=== PATIENT | female | born 1970 | race Caucasian/White ===

== ENCOUNTER → 2017-09-05 | Outpatient (CLI) | payer OTHER ==
[2016-09-06 23:28] VITALS: BP 152/89
--- NOTE | 2017-09-06 08:13 | MRI ---
HISTORY: Cervical spondylosis Study: Magnetic resonance imaging of the cervical spine: Multiplanar multisequence magnetic resonanc e of the cervical spine was performed on a closed magnet. Comparison: None Findings: The paraspinal soft tissues demonstrate no evidence of cervical adenopathy. The thyroid as visualized is normal. No evidence of supraclavicular adenopathy is identified. The sagittal images demonstrate normal curvature and alignment. [id number] disc desiccation is noted throughout. Mild space narrowing is noted at T3/T4. The marrow signal intensity is homogeneous. I see no evidence marrow edema that would suggest a fracture. Posterior fossa as visualized is jacquie l . The cervical spinal cord is of normal signal. Skullbase/C1: No significant abnormalities. C1/C2: Minimal degenerative change in the pre odontoid space. Mild thickening of the transverse ligam ent. No significant spinal stenosis. C2/C3: No significant abnormalities. C3/C4: No significant abnormalities. C4/C5: Minimal disc spur complex formation. No other significant abnormalities. C5/C6: Large disc spur complex extending predominantly to the right. Moderate impingement and mild co mpression of the spinal cord, predominantly on the right. Mild facet arthropathy and uncovertebral brandon int arthropathy bilaterally, left greater than right. Moderate moderately severe foraminal stenosis o n the left. Mild on the right. C6/C7: Mild facet arthropathy. Minimal uncovertebral joint arthropathy. Minimal foraminal stenosis bi laterally. C7/T1: No significant abnormalities. T1/T2: Sagittal images only. No significant abnormalities. T2/T3: Sagittal images only. No significant abnormalities. T3/T4: Sagittal images only. There is a tiny central disc protrusion versus bulging. This appears to abut the spinal cord but not compresses. No other significant abnormalities. T4/T5: Sagittal images only. No significant abnormalities. IMPRESSION: 1. Cervical spondylosis as described above, predominating at C5/C6 where there is compression of the spinal cord. 2. Please see detailed report above. Reported By:
== END ==
LOC: RAD 13:37
PROVIDERS: ATTEND Psychiatry & Neurology Neurology
DX: M47.812 Spondylosis without myelopathy or radiculopathy, cervical region (principal)
CPT/HCPCS: 72141

== ENCOUNTER → 2017-09-06 | Outpatient (CLI) | payer OTHER ==
[2016-09-06 23:28] VITALS: BP 152/89
== END ==
LOC: RT 09:03
PROVIDERS: ATTEND Psychiatry & Neurology Neurology
DX: G56.03 Carpal tunnel syndrome, bilateral upper limbs (principal)
CPT/HCPCS: 95911

== ENCOUNTER → 2017-10-10 | Outpatient (CLI) | payer OTHER ==
[2016-09-06 23:28] VITALS: BP 152/89
[2017-10-10 06:25] LABS: BASOPHILS % (AUTO) 0.7 % (0.2-1.0); EOSINOPHILS # (AUTO) 0.1 x10^3/uL (0.0-0.2); EOSINOPHILS % (AUTO) 1.8 % (0.9-2.9); HEMATOCRIT 37.4 % (36.0-47.0); HEMOGLOBIN 12.8 g/dL (12.0-16.0); LYMPHOCYTES # (AUTO) 2.4 X10^3/uL (1.3-2.9); LYMPHOCYTES % (AUTO) 34.4 % (21.0-51.0); MEAN CORPUSCULAR HEMOGLOBIN 28.9 pg (27.0-34.0); MEAN CORPUSCULAR HGB CONC 34.2 g/dL (33.0-35.0); MEAN CORPUSCULAR VOLUME 84.7 fL (80.0-100.0); MEAN PLATELET VOLUME 8.9 fL (7.4-11.0); MONOCYTES # (AUTO) 0.3 x10^3/uL (0.3-0.8); MONOCYTES % (AUTO) 4.8 % (0.0-13.0); NEUTROPHILS % (AUTO) 58.3 % (42.0-75.0); PLATELET COUNT 252 X10^3/uL (150.0-450.0); RED BLOOD COUNT 4.42 X10^6/uL (3.5-5.4); RED CELL DISTRIBUTION WIDTH 13.4 % (11.6-16.5); WHITE BLOOD COUNT 6.9 X10^3/uL (3.6-10.0)
[2017-10-10 06:41] LABS: ALBUMIN 4.4 g/dL (3.4-5.0); BLOOD UREA NITROGEN 18 mg/dL (7-18); CALCIUM 9.1 mg/dL (8.5-10.1); CARBON DIOXIDE 28.2 mmol/L (21-32); CHLORIDE 105 mmol/L (98-107); CHOL/HDL RATIO 3.2 (0.0-5.0); CHOLESTEROL 186 mg/dL (0-200); CREATININE 1.21 mg/dL (0.55-1.02); HDL CHOLESTEROL 58 mg/dL (40-60); PHOSPHORUS 4.1 mg/dL (2.6-4.7); SODIUM 143 mmol/L (136-145); TRIGLYCERIDES 126 mg/dL (0-150); URIC ACID 5.6 mg/dL (2.6-6.0); eGFR BLACK RACES > 60 (>60); eGFR NON BLACK RACES 51 (>60)
== END | disposition home or self-care (01) | DRG 684 ==
LOC: LAB 06:06
PROVIDERS: ATTEND Internal Medicine
DX: I12.9 Hypertensive chronic kidney disease with stage 1 through stage 4 chronic kidney disease, or unspecified chronic kidney disease (principal); N18.3 Chronic kidney disease, stage 3 (moderate)
CPT/HCPCS: 36415; 80061; 80069; 84550; 85025

== ENCOUNTER → 2018-01-16 | Outpatient (CLI) | payer OTHER ==
[2016-09-06 23:28] VITALS: BP 152/89
--- NOTE | 2018-01-16 21:36 | RAD ---
History: Ingested foreign body, swallowed a dental device. Technique: Acute abdominal series with PA view of the chest and flat and upright views of the abdomen . Three radiographs total. Comparison:NONE Findings: Chest radiograph: Lungs are clear. No focal airspace opacities. The hilar and cardiomediastinal silho uette appear normal. No radiopaque foreign bodies are noted along the course of the esophagus. Flat and upright abdomen: Flat and upright views of the abdomen demonstrate a metallic density radiop acity projecting over the right lower quadrant of the abdomen, over the right iliac crest adjacent to the SI joint. This is consistent with patient's history of ingested dental device and may be within distal small bowel or proximal colon. Bowel gas pattern is nonspecific nonobstructive. No free air is demonstrated under the diaphragms. Impression: 1. Radiopaque foreign body projecting over the right lower quadrant of the abdomen as discussed above . This is consistent with patient's history of ingested dental device. 2. No radiographic evidence of acute cardiopulmonary process. Reported By:
== END ==
LOC: RAD 13:19
PROVIDERS: ATTEND Psychiatry & Neurology Neurology
DX: T17.298A Other foreign object in pharynx causing other injury, initial encounter (principal); X58.XXXA Exposure to other specified factors, initial encounter
CPT/HCPCS: 74022

== ENCOUNTER → 2018-01-19 | Outpatient (CLI) | payer OTHER ==
[2016-09-06 23:28] VITALS: BP 152/89
--- NOTE | 2018-01-19 17:11 | RAD ---
Examination: Abdomen series with PA chest History: Swallowed dental device Comparison 01/16/2018 Findings: Essentially normal PA chest. In the abdomen the gas pattern is normal. There is no evidence for metallic foreign body now i dentified. No free air, mass or free fluid. Impression: No abnormality demonstrated. The previously described foreign body in the right lower abd omen is no longer identified.
== END | disposition home or self-care (01) ==
LOC: RAD 16:44
PROVIDERS: ATTEND Psychiatry & Neurology Neurology
DX: T17.900S Unspecified foreign body in respiratory tract, part unspecified causing asphyxiation, sequela (principal); X58.XXXS Exposure to other specified factors, sequela
CPT/HCPCS: 74022

== ENCOUNTER 2020-12-28 09:50 | Inpatient (IN) ==
[2020-12-28 10:09] VITALS: BMI 25.7
[2020-12-28] MEDS ORDERED: NS 1000 ML 1,000 ML IV ONE (10:23)
--- NOTE | 2020-12-28 10:29 | DR.GENAD ---
HPI Time Seen Time Seen by Provider: 12/28/20 10:22 HPI Comment HPI Comment: A 50 y/o female brought into ED via EMS with information of being unresponsive. Pt. was found to be hypotensive by the response team. It was stated that her family felt she may have aspirated yesterday. 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 Complaint/Symptoms Chief Complaint:: EMS OUT TO PT UNRESPONSIVE AND LOW B/P, UPON ARRIVAL PT NOTED TO HAVE B/P WNL AND FAMILY STATES PT MAY HAVE ASPIRATED YESTERDAY . UPON ARRIVAL TO ER PT NOTED TO BE FAVORING HER RIGHT SIDE,( HX OF CVA) PT HAS ON 02 3 LPM, PT IS ON HOME 02 2 LPM, PT HAS EXP RHONCHI AND WHEEZES, PT IS PALE AND HAS HER EYES OPEN AND PT HAS PEG TUBE TO HER ABD ,,BR COVID-19 Coronavirus risk:travel/contact w/high risk person: No Has patient experienced Coronavirus symptoms: No Nurses notes reviewed Nurses Notes Review: Yes Source History Provided: Family Member and EMS Mode of Arrival Mode of Arrival: Stretcher Timing Onset of Chief Complaint: 12/28/20 PMH PMH Past Medical History: Yes Past Medical History: CHF, CVA, Hypertension and [place] Past Surgical History: Yes Surgical History: Family History History of Family Medical Conditions: Yes Family Medical History: Cancer, Coronary Artery Disease and Hypertension Social History Does patient currently use any type of tobacco product: No Have you used tobacco products in the last 12 months: No Type of Tobacco Use: None Does any household member use tobacco: No Alcohol Use: None Do you use any recreational Drugs:: No Lives With: Family Lives Where: Home Travel Risk Coronavirus risk:travel/contact w/high risk person: No Has patient experienced Coronavirus symptoms: No Infectious screening In the last 2 months have you had wt loss of >10#?: NO Have you had fever, night sweats or hemotysis?: No Have you traveled outside the country in the last 6 months?: No Isolation: Standard ROS Review of Systems Constitutional: No Symptoms Reported Eyes: No Symptoms Reported ENTM: No Symptoms Reported Respiratoy: Other (gourgling BS) Cardiovascular: No Symptoms Reported Gastrointestinal/Abdominal: No Symptoms Reported Genitourinary: No Symptoms Reported Neurological: Other (Decreased responsiveness ) Musculoskeletal: No Symptoms Reported Integumentary: No Symptoms Reported Hematologic/Lymphatic: No Symptoms Reported Endocrine: No Symptoms Reported Psychiatric: No Symptoms Reported PE Vital Signs Vitals: Temperature 97.4 F Pulse Rate 55 Respiratory Rate 12 Blood Pressure [Left Arm] 167/100 Blood Pressure 133/80 O2 Sat by Pulse Oximetry 98 General Limitations: Altered Mental Status and Physical Limitation General Appearance: In No Apparent Distress and Lethargic Head Head Exam: Normal Inspection, Atraumatic and Normocephalic Eyes Eye exam: Normal Appearance and PERRL ENT ENT Exam: Normal Exam, Normal Oropharynx, Normal External Ear Exam and Mucous Membranes Dry Neck Neck Exam: Normal Inspection, Full ROM, Trachea Midline and Other; negative Tenderness, Meningismus, Lymphadenopathy and Thyromegaly Chest Chest Inspection: Normal Inspection and Symmetric Chest Wall Rise Respiratory Respiratory Exam: Other (She's noted with periods of apnea.) Respiratory Exam: Bilateral: Rhonchi and Bilateral: Crackles Cardiovascular Cardiovascular Exam: Regular Rate, Normal Rhythm, Normal Heart Sounds, +S1 and +S2 Abdominal Exam Abdominal Exam: Normal Inspection, Normal Bowel Sounds and Soft Extremities Extremities Exam: Other (flacid and hyperextended at feet/ankles) Back Back Exam: Normal Inspection Neurologic Neurological Exam: Other (She is not alert currently) Skin Skin Exam: Dry and Normal Color COURSE Reevaluation 1st: Improved (BP values ae now better) Education/Counseling Education/Counseling: Family (I informed her tea about the diagnostic lab. findings and recommendation for hospitalization), Education and Counseling Educated On: Treatment, Diagnosis, Prognosis and Needs for Follow Up ROR Labs Reviewed Result Diagrams: 12/28/20 10:39 12/28/20 10:39 Laboratory: WBC 7.6 X10^3/uL (3.6-10.0) 12/28/20 10:39 RBC 3.69 X10^6/uL (3.5-5.4) 12/28/20 10:39 Hgb 10.7 g/dL (12.0-16.0) L 12/28/20 10:39 Hct 32.9 % (36.0-47.0) L 12/28/20 10:39 MCV 89.1 fL (80.0-100.0) 12/28/20 10:39 MCH 28.9 pg (27.0-34.0) 12/28/20 10:39 MCHC 32.4 g/dL (33.0-35.0) L 12/28/20 10:39 RDW 14.6 % (11.6-16.5) 12/28/20 10:39 Plt Count 263 X10^3/uL (150.0-450.0) 12/28/20 10:39 MPV 9.9 fL (7.4-11.0) 12/28/20 10:39 Neut % (Auto) 67.9 % (42.0-75.0) 12/28/20 10:39 Lymph % (Auto) 22.7 % (21.0-51.0) 12/28/20 10:39 [place] % (Auto) 5.8 % (0.0-13.0) 12/28/20 10:39 Eos % (Auto) 2.6 % (0.9-2.9) 12/28/20 10:39 Baso % (Auto) 1.0 % (0.2-1.0) 12/28/20 10:39 Neut # (Auto) 5.2 x10^3/uL (2.2-4.8) H 12/28/20 10:39 Lymph # (Auto) 1.7 X10^3/uL (1.3-2.9) 12/28/20 10:39 [place] # (Auto) 0.4 x10^3/uL (0.3-0.8) 12/28/20 10:39 Eos # (Auto) 0.2 x10^3/uL (0.0-0.2) 12/28/20 10:39 Baso # (Auto) 0.1 X10^3/uL (0.0-0.1) 12/28/20 10:39 Absolute Nucleated RBC 0.0 /100WBC 12/28/20 10:39 Sample Site Rbra 12/28/20 10:45 ABG pH 7.320 (7.35-7.45) L 12/28/20 10:45 ABG pCO2 51.0 mmHg (35.0-45.0) H* 12/28/20 10:45 ABG pO2 71.0 mmHg (80.0-100.0) L 12/28/20 10:45 ABG HCO3 26.3 mmol/L (22-26) H 12/28/20 10:45 ABG O2 Saturation 93.0 % (90-100) 12/28/20 10:45 ABG Base Excess -0.4 mmol/L (-2.0-2.0) 12/28/20 10:45 Rodolfo Test N/a 12/28/20 10:45 A-a Gradient 93.0 mmHg 12/28/20 10:45 FiO2 32.0 12/28/20 10:45 Blood Gas Comments Pt nilesh well eb 12/28/20 10:45 Sodium 140 mmol/L (136-145) 12/28/20 10:39 Corrected Sodium TNP 12/28/20 10:39 Potassium 4.0 mmol/L (3.5-5.1) 12/28/20 10:39 Chloride 104 mmol/L (98-107) 12/28/20 10:39 Carbon Dioxide 28.8 mmol/L (21-32) 12/28/20 10:39 BUN 41 mg/dL (7-18) H 12/28/20 10:39 Creatinine 2.71 mg/dL (0.55-1.02) H 12/28/20 10:39 Est GFR (MDRD) Af Amer 24 (>60) L 12/28/20 10:39 Est GFR (MDRD) Non-Af 20 (>60) L 12/28/20 10:39 Glucose 74 mg/dL (65-99) 12/28/20 10:39 Calcium 10.9 mg/dL (8.5-10.1) H 12/28/20 10:39 Corrected Calcium TNP 12/28/20 10:39 Total Bilirubin 0.50 mg/dL (0.2-1.0) 12/28/20 10:39 AST 51 Units/L (15-37) H 12/28/20 10:39 ALT 90 Units/L (12-78) H 12/28/20 10:39 Alkaline Phosphatase 123 Units/L (46-116) H 12/28/20 10:39 Total Protein 7.8 g/dL (6.4-8.2) 12/28/20 10:39 Albumin 3.5 g/dL (3.4-5.0) 12/28/20 10:39 Globulin 4.3 g/dL (2.5-4.5) 12/28/20 10:39 Albumin/Globulin Ratio 0.8 Ratio (1.1-2.1) L 12/28/20 10:39 Specimen Type Catherized urine 12/28/20 10:17 Urine Color Yellow (YELLOW) 12/28/20 10:17 Urine Appearance Cloudy (CLEAR) 12/28/20 10:17 Urine pH 5.0 (5.0 - 8.0) 12/28/20 10:17 Ur Specific [place] 1.025 (1.000-1.030) 12/28/20 10:17 Urine Protein 2+ (NEGATIVE) 12/28/20 10:17 Urine Glucose (UA) Negative (NEGATIVE) 12/28/20 10:17 Urine Ketones Negative (NEGATIVE) 12/28/20 10:17 Urine Occult Blood 2+ (NEGATIVE) 12/28/20 10:17 Urine Nitrite Negative (NEGATIVE) 12/28/20 10:17 Urine Bilirubin Negative (NEGATIVE) 12/28/20 10:17 Urine Urobilinogen Normal (NORMAL) 12/28/20 10:17 Ur Leukocyte Esterase 3+ (NEGATIVE) 12/28/20 10:17 Urine RBC 10-20 /HPF (0-3) A 12/28/20 10:17 Urine WBC 10-20 /HPF (0-5) A 12/28/20 10:17 Ur Squamous Epith Cells Many /HPF (NEGATIVE) 12/28/20 10:17 Calcium Oxalate Crystal Few /HPF (NEGATIVE) 12/28/20 10:17 Amorphous Sediment 3+ /HPF (NEGATIVE) 12/28/20 10:17 Urine Bacteria 1+ /HPF (NEGATIVE) 12/28/20 10:17 Ur Culture Indicated? No/not indicated 12/28/20 10:17 SARS CoV-2 RNA Rapid PEGGY Negative (NEGATIVE) 12/28/20 12:56 XRAY XRAY Interpreted by: Self X-ray Results: CXR: No acute cardio-pulmonary disease noted. A radiologist report is pending. EKG Rate: 52 [place]: Normal Rhythm: NSR Block: None Hypertrophy: LAE and LVH ST: Normal Opioid Opioid Risk Tool Age (Saeid box if 16-45): No History of Preadolescent Sexual Abuse: No Total: 0 Total Score Risk Category: Low Risk Copyright: Sam LEBLANC predicting aberrant behaviors Diagnosis Discharge Problem: Unresponsive state, Apnea, Acute dehydration, Anemia, normocytic normochromic, Acute hypotension UTI (urinary tract infection) Qualifiers: Urinary tract infection type: acute cystitis Hematuria presence: with hematuria Qualified Code(s): N30.01 - Acute cystitis with hematuria
[2020-12-28] MEDS ORDERED: NS 1000 ML 1,000 ML ONE (10:35)
[2020-12-28 10:37] LABS: BILIRUBIN,URINE NEGATIVE (NEGATIVE); BLOOD/HEMOGLOBIN,URINE 2+ (NEGATIVE); GLUCOSE, URINE NEGATIVE (NEGATIVE); KETONES,URINE NEGATIVE (NEGATIVE); LEUKOCYTE ESTERASE ,URINE 3+ (NEGATIVE); NITRITES,URINE NEGATIVE (NEGATIVE); PROTEIN,URINE 2+ (NEGATIVE); UROBILINOGEN,URINE NORMAL (NORMAL)
[2020-12-28 10:48] LABS: ABG BASE EXCESS -0.4 mmol/L (-2.0-2.0); ABG HCO3 26.3 mmol/L (22-26)
[2020-12-28 10:53] LABS: BASOPHILS # (AUTO) 0.1 X10^3/uL (0.0-0.1); EOSINOPHILS # (AUTO) 0.2 x10^3/uL (0.0-0.2); EOSINOPHILS % (AUTO) 2.6 % (0.9-2.9); HEMATOCRIT 32.9 % (36.0-47.0); HEMOGLOBIN 10.7 g/dL (12.0-16.0); LYMPHOCYTES # (AUTO) 1.7 X10^3/uL (1.3-2.9); LYMPHOCYTES % (AUTO) 22.7 % (21.0-51.0); MEAN CORPUSCULAR HEMOGLOBIN 28.9 pg (27.0-34.0); MEAN CORPUSCULAR HGB CONC 32.4 g/dL (33.0-35.0); MEAN CORPUSCULAR VOLUME 89.1 fL (80.0-100.0); MEAN PLATELET VOLUME 9.9 fL (7.4-11.0); MONOCYTES # (AUTO) 0.4 x10^3/uL (0.3-0.8); MONOCYTES % (AUTO) 5.8 % (0.0-13.0); NEUTROPHILS # (AUTO) 5.2 x10^3/uL (2.2-4.8); NEUTROPHILS % (AUTO) 67.9 % (42.0-75.0); PLATELET COUNT 263 X10^3/uL (150.0-450.0); RED BLOOD COUNT 3.69 X10^6/uL (3.5-5.4); RED CELL DISTRIBUTION WIDTH 14.6 % (11.6-16.5); WHITE BLOOD COUNT 7.6 X10^3/uL (3.6-10.0)
[2020-12-28 11:18] LABS: APPEARANCE,URINE CLOUDY (CLEAR); BACTERIA,URINE 1+ /HPF (NEGATIVE); CALCIUM OXALATE CRYSTALS,UR FEW /HPF (NEGATIVE); COLOR,URINE YELLOW (YELLOW); SQUAMOUS EPITHELIAL CELL,UR MANY /HPF (NEGATIVE)
[2020-12-28 11:19] LABS: AMORPHOUS SEDIMENT,UR 3+ /HPF (NEGATIVE)
[2020-12-28 11:34] LABS: ALANINE AMINOTRANSFERASE 90 Units/L (12-78); ALBUMIN 3.5 g/dL (3.4-5.0); ALKALINE PHOSPHATASE 123 Units/L (46-116); ASPARTATE AMINO TRANSFERASE 51 Units/L (15-37); BLOOD UREA NITROGEN 41 mg/dL (7-18); CALCIUM 10.9 mg/dL (8.5-10.1); CARBON DIOXIDE 28.8 mmol/L (21-32); CHLORIDE 104 mmol/L (98-107); CREATININE 2.71 mg/dL (0.55-1.02); SODIUM 140 mmol/L (136-145); TOTAL PROTEIN 7.8 g/dL (6.4-8.2); eGFR NON BLACK RACES 20 (>60)
--- NOTE | 2020-12-28 11:39 | RAD ---
HISTORYUNRESPONSIVE, HX OF CVA, POSS ASPIRATIONSTUDYCHEST, 1 VIEWCOMPARISONChest film December 05, 2020.FINDINGSThe trachea is midline. The cardiac silhouette is unremarkable . The lungs are clear without focal infiltrate or effusion. Minimal discoid atelectasis is seen in the left lung base similar to what was seen previously on December 05, 2020 the bony thorax is unremarkable.IMPRESSIONNo acute cardiopulmonary disease other than minimal left basilar atelectasis and no significant change from prior study 05 December 2020..Electronically signed by: MANSI ROTH (Dec 28, 2020 11:35:30)
--- NOTE | 2020-12-28 11:41 | CT ---
CT head without contrastIndication: Unresponsive. History of strokeComparison December 05, 2020TECHNIQUEAxial images from the skullbase to the vertex without contrast. Coronal and sagittal reformats provided.FINDINGS: Review of bone windows demonstrates left frontal craniotomy change. Visualized paranasal sinuses and mastoid air cells are clear. No destructive osseous lesions seen.There is linear hyperdense extending from the craniotomy site posteriorly to the basal ganglia on axial images 24 through 18, with external capsule and operculum white matter hypodensity markedly notable, as well as scattered basal ganglia hypodensities, worse on the left.No new area of hypoattenuation suggest acute infarct is identified. There is mild atrophic change with ex vacuo ventricular and sulcal enlargement.There is no acute intracranial hemorrhage, mass or mass effect. No extra-axial fluid collection identified.IMPRESSION1. Encephalomalacia and old infarct in the left frontal lobe and basal ganglia similar to the prior. Craniotomy change again noted.2. No acute intracranial hemorrhage.Electronically signed by: ALBERTO BASHIR (Dec 28, 2020 11:39:12)
[2020-12-28] MEDS ORDERED: TRANSDERM-SCOP TD ONE (11:49)
[2020-12-28] MEDS ORDERED: LEVAQUIN PREMIX IV 500 MG 500 MG/100 ML BAG IV ONE ×2 (11:50→11:57)
[2020-12-28] MEDS: PEPCID TAB 20 MG PO SCH (15:11)
[2020-12-28] MEDS: NS 1000 ML 1,000 ML IV SCH (15:11)
[2020-12-28] MEDS: TRANSDERM-SCOP TD SCH (15:17)
[2020-12-28] MEDS: ROCEPHIN VIAL 1 GRAM 1 G in NS 100 ML IV + SPIKE MINIBAG* 100 ML IV SCH (17:35)
[2020-12-28] MEDS: ROXICODONE TAB 5 MG PO PRN (20:04)
[2020-12-28] MEDS: ROBITUSSIN DM PO SCH (21:07)
[2020-12-28] MEDS: COLACE SYRUP 100 MG UDC PO SCH (21:07)
[2020-12-29] MEDS: NS 1000 ML 1,000 ML IV SCH ×4 (02:41→23:22)
[2020-12-29 06:15] LABS: BASOPHILS % (AUTO) 0.5 % (0.2-1.0); EOSINOPHILS # (AUTO) 0.2 x10^3/uL (0.0-0.2); EOSINOPHILS % (AUTO) 4.5 % (0.9-2.9); HEMATOCRIT 29.8 % (36.0-47.0); LYMPHOCYTES # (AUTO) 1.3 X10^3/uL (1.3-2.9); LYMPHOCYTES % (AUTO) 25.5 % (21.0-51.0); MEAN CORPUSCULAR HEMOGLOBIN 29.6 pg (27.0-34.0); MEAN CORPUSCULAR HGB CONC 33.6 g/dL (33.0-35.0); MEAN CORPUSCULAR VOLUME 88.2 fL (80.0-100.0); MEAN PLATELET VOLUME 9.9 fL (7.4-11.0); MONOCYTES # (AUTO) 0.3 x10^3/uL (0.3-0.8); MONOCYTES % (AUTO) 6.2 % (0.0-13.0); NEUTROPHILS # (AUTO) 3.2 x10^3/uL (2.2-4.8); NEUTROPHILS % (AUTO) 63.3 % (42.0-75.0); PLATELET COUNT 196 X10^3/uL (150.0-450.0); RED BLOOD COUNT 3.37 X10^6/uL (3.5-5.4); RED CELL DISTRIBUTION WIDTH 14.6 % (11.6-16.5); WHITE BLOOD COUNT 5.1 X10^3/uL (3.6-10.0)
[2020-12-29 06:40] LABS: ALANINE AMINOTRANSFERASE 87 Units/L (12-78); ALBUMIN 3.1 g/dL (3.4-5.0); ALKALINE PHOSPHATASE 121 Units/L (46-116); ASPARTATE AMINO TRANSFERASE 48 Units/L (15-37); BLOOD UREA NITROGEN 32 mg/dL (7-18); CALCIUM 10.1 mg/dL (8.5-10.1); CARBON DIOXIDE 24.1 mmol/L (21-32); CHLORIDE 111 mmol/L (98-107); COR CA(FOR HYPOALB) 10.8 mg/dL (8.5-10.1); CREATININE 1.98 mg/dL (0.55-1.02); SODIUM 145 mmol/L (136-145); TOTAL PROTEIN 6.9 g/dL (6.4-8.2); eGFR NON BLACK RACES 29 (>60)
[2020-12-29] MEDS ORDERED: LEVAQUIN PREMIX IV 250 MG 250 MG/50 ML BAG IV SCH (09:00)
[2020-12-29] MEDS: ROCEPHIN VIAL 1 GRAM 1 G in NS 100 ML IV + SPIKE MINIBAG* 100 ML IV SCH (09:27)
[2020-12-29] MEDS: ATIVAN INJ 2 MG VIAL IVP PRN ×2 (09:27→15:00)
--- NOTE | 2020-12-29 09:35 | RAD ---
HISTORYCHEST CONGESTION WITH DROP IN O2 SATSTUDYCHEST, 1 [id number]/03/2021.TECHNIQUEAP view of the chestFINDINGSCardiac and mediastinal contours are within normal limits. There is right perihilar/upper lung and left upper and lower lung hazy opacity. Pulmonary vascular congestion is present. No definite pleural effusion or pneumothorax.IMPRESSIONScattered hazy lung opacities may represent pulmonary edema or pneumonia.Electronically signed by: Cory Arriaga (Dec 29, 2020 09:33:28)
[2020-12-29] MEDS: COREG TAB 6.25 MG PO SCH ×2 (10:10→20:24)
[2020-12-29] MEDS: ROBITUSSIN DM PO SCH ×4 (10:10→20:24)
[2020-12-29] MEDS: PROzac PO SCH (10:10)
[2020-12-29] MEDS: COLACE SYRUP 100 MG UDC PO SCH ×2 (10:11→20:24)
[2020-12-29] MEDS: PEPCID TAB 20 MG PO SCH (10:11)
[2020-12-29] MEDS: ROXICODONE TAB 5 MG PO PRN ×2 (10:11→20:25)
[2020-12-29] MEDS: XANAX PO PRN ×2 (10:48→22:55)
[2020-12-29 11:52] LABS: ABG BASE EXCESS -2.2 mmol/L (-2.0-2.0); ABG HCO3 24.2 mmol/L (22-26)
[2020-12-29 11:53] LABS: ABG ALLEN TEST POS
[2020-12-29] MEDS ORDERED: LASIX IVP ONE ×2 (12:28→12:33)
[2020-12-29] MEDS: LOVENOX INJ 40 MG SYR SC SCH (12:53)
[2020-12-29 13:08] LABS: BILIRUBIN,URINE NEGATIVE (NEGATIVE); BLOOD/HEMOGLOBIN,URINE 1+ (NEGATIVE); GLUCOSE, URINE NEGATIVE (NEGATIVE); KETONES,URINE NEGATIVE (NEGATIVE); LEUKOCYTE ESTERASE ,URINE 3+ (NEGATIVE); NITRITES,URINE NEGATIVE (NEGATIVE); PROTEIN,URINE 2+ (NEGATIVE); UROBILINOGEN,URINE NORMAL (NORMAL)
[2020-12-29 13:15] LABS: APPEARANCE,URINE CLOUDY (CLEAR); COLOR,URINE YELLOW (YELLOW)
[2020-12-29 13:23] LABS: BACTERIA,URINE 1+ /HPF (NEGATIVE); SQUAMOUS EPITHELIAL CELL,UR MODERATE /HPF (NEGATIVE)
[2020-12-29 13:24] LABS: AMORPHOUS SEDIMENT,UR 2+ /HPF (NEGATIVE); YEAST,URINE FEW /HPF (NEGATIVE)
[2020-12-29] MEDS ORDERED: APRESOLINE INJ 20 MG VIAL ONE (14:02)
[2020-12-29] MEDS: APRESOLINE INJ 20 MG VIAL IVP PRN (14:05)
[2020-12-29 14:38] LABS: ABG ALLEN TEST POS; ABG BASE EXCESS -0.7 mmol/L (-2.0-2.0); ABG HCO3 24.2 mmol/L (22-26)
[2020-12-29] MEDS: MORPHINE SULFATE INJ 2 MG INJ IVP PRN (15:00)
--- NOTE | 2020-12-29 15:08 | DR.H&P ---
H&P - History & Physical for Day of: H&P Date: 12/28/20 - Chief Complaint Chief Complaint: AMS - History of Present Illness History of Present Illness: PT IS 50WF ER ADMISSION WITH REPORTS FROM EMS, PT UNRESPONSIVE AND LOW B/P, UPON ARRIVAL PT NOTED TO HAVE B/P WNL AND FAMILY STATES PT MAY HAVE ASPIRATED YESTERDAY . UPON ARRIVAL TO ER PT NOTED TO BE FAVORING HER RIGHT SIDE,( HX OF CVA) PT HAS ON 02 3 LPM, PT IS ON HOME 02 2 LPM, PT HAS EXP RHONCHI AND WHEEZES, PT IS PALE AND HAS HER EYES OPEN AND PT HAS PEG TUBE TO HER ABD. - Past Medical History Past Medical History: Anxiety, CHF, COPD, CVA, Hypertension, [place] - Past Surgical History Surgical History: , Tonsillectomy, Other - Family History Family Medical History: Cancer, Coronary Artery Disease, Hypertension - Social History Does patient currently use any type of tobacco product: No Have you used tobacco products in the last 12 months: No Type of Tobacco Use: None Does any household member use tobacco: No Alcohol Use: None Drug Use: None - Medications Home Medications: No Known Drug Allergies Allergy (Verified 12/28/20 10:10) CONTINUE taking the following medications alprazolam [Xanax] 1 mg PO BID 12/28/20 [History] amlodipine-benazepril [Lotrel] 1 cap PO ONCE 12/28/20 [History] atropine 1 drp BUCCAL PRN PRN 12/28/20 [History] docusate sodium [Silace] 100 mg PO BID 12/28/20 [History] ziprasidone HCl 20 mg FEEDING TUBE BID 12/28/20 [History] - Review of Systems Constitutional: Weakness Eyes: No Symptoms Reported ENT: No Symptoms Reported Respiratory: Wheezing Cardiovascular: No Symptoms Reported Gastrointestinal: No Symptoms Reported, Other ("PULLED OUT HER PEG TUBE, CHAVEZ TUBING IN PLACE") Genitourinary: Incontinence Musculoskeletal: No Symptoms Reported Skin: No Symptoms Reported Neurological: Incoordination, Other (APHAGIA, AMS) - Physical Exam Vital Signs: Temperature 99 F Pulse Rate [Left Brachial] 100 Pulse Rate 52 Respiratory Rate 28 Blood Pressure [Left Arm] 159/100 Blood Pressure 122/66 O2 Sat by Pulse Oximetry 89 Oriented: Unable to test Eyes: Discharge, Redness Ear: Normal Nose: Normal Throat: Dry Respiratory: Rhonchi Throughout Cardiovascular: Tachycardia. negative: Edema : Normal Auscultation: Bowel Sounds: Normal Palpation: Normal Tenderness: Normal Skin: Decreased Turgur Musculoskeletal: Motor Deficit, Sensory Deficit Mood Description: Anxious Affect: Anxious Speech Pattern: Aphasic - Assessment/Plan (1) Altered mental status Status: Acute Plan: CT HEAD ON ADMISSION, BC, LACTIC ACID. ABG, CXR ON ADMISSION. COVID SWAB, VERIFY HOME MEDICATION, SUPPLEMENTAL O2. BP CONTROL, IV HYDRATION, STRICT I&OS (2) Aspiration into airway Status: Acute (3) Acute dehydration Status: Acute (4) UTI (urinary tract infection) Qualifiers: Urinary tract infection type: acute cystitis Hematuria presence: with hematuria Qualified Code(s): N30.01 - Acute cystitis with hematuria Status: Acute (5) Acute hypotension Status: Acute - Allergies Allergies/Adverse Reactions: Allergies Allergy/AdvReac Type Severity Reaction Status Date / Time No Known Drug Allergies Allergy Verified 12/28/20 10:10
[2020-12-29] MEDS: ZITHROMAX INJ 500 MG VIAL 500 MG in NS 250 ML IV 250 ML IV SCH (15:26)
[2020-12-29] MEDS: ZOSYN VIAL 3.375 GRAMS 3.375 G in NS 100 ML IV + SPIKE MINIBAG* 100 ML IV SCH ×3 (15:27→22:14)
[2020-12-29] MEDS: NS 250 ML IV 250 ML IV SCH (15:27)
[2020-12-29] MEDS: SOLU-Medrol 125 MG VIAL IVP SCH ×2 (15:27→20:25)
[2020-12-29] MEDS: DUONEB 0.5 MG/3 MG (3 mL) NEB SCH ×2 (18:05→21:23)
--- NOTE | 2020-12-29 18:24 | PCM.PROG ---
Progress Note - Progress Note for Day of Date of Exam: 12/29/20 - Subjective Subjective: PT IS 50 WF ER ADMISSION WITH AMS, SUSPECTED ASPIRATION. PT HAS CHRONIC APHAGIA FOLLOWING HEMORRHAGIC CVA LAST YEAR. PTS HOME MEDICATION WERE RESUMED ON ADMISSION. PT HAD CT HEAD ON ADMISSION W/O ACUTE CVA. PT HAD MORE DIFFUSE RHONCHI THIS MORNING WITH PNEUMONIA ON CXR. PT ALSO HAVING INCREASED BP WITH LOWER O2 SATURATION. ABG OBTAINED THIS AM. PT STARTED ON ZITHROMAX, ZYVOX AND ZOSYN THIS MORNING. PT WAS GIVEN LEVAQUIN ON ADMISSION AND ROCEPHIN. PT HAD ACUTE RENAL INSUFFICIENCY ON ADMISSION WITH HYPOTENSION. BP RETURNED TO HYPERTENSIVE, BUN 32, CREAT 1.98 TODAY. CHAVEZ CATH PLACED FOR STRICT I&OS. PLAN TO CONSULT DR DOMINGUEZ FOR FEEDING TUBE REPLACEMENT, PT HAD PREVIOSLY PULLED AT HOME PER FAMILY. - Past Medical Family Social History Past Med/Fam/Surg Hx: No changes since H&P Allergies: Allergies No Known Drug Allergies Allergy (Verified 12/28/20 10:10) - Review of Systems ROS: No change since H&P - Vital Signs and I&O's Vital Signs: Temperature 97.7 F Pulse Rate [Right Brachial] 85 Pulse Rate [Left Brachial] 100 Pulse Rate 52 Respiratory Rate 18 Blood Pressure [Right Arm] 122/78 Blood Pressure [Left Arm] 159/100 Blood Pressure 122/66 O2 Sat by Pulse Oximetry 96 Intake and Output: Intake & Output 12/27/20 12/28/20 12/29/20 12/30/20 11:59 11:59 11:59 11:59 Intake Total 1800 / 1800 0 / 0 Output Total 1400 / 1400 Balance 1800 / 1800 -1400 / -1400 - Physical Exam Oriented: Unable to test Eyes: Discharge, Redness Ear: Normal Nose: Normal Throat: Dry Respiratory: Rhonchi Cardiovascular: Tachycardia. negative: Edema : Normal Auscultation: Bowel Sounds: Normal Tenderness: Normal Skin: Decreased Turgur Musculoskeletal: Motor Deficit, Sensory Deficit Mood Description: Anxious Affect: Anxious Speech Pattern: Aphasic - Laboratory and Diagnostics Result Diagrams: 12/29/20 05:15 12/29/20 05:15 Labs: Laboratory WBC 5.1 X10^3/uL (3.6-10.0) 12/29/20 05:15 RBC 3.37 X10^6/uL (3.5-5.4) L 12/29/20 05:15 Hgb 10.0 g/dL (12.0-16.0) L 12/29/20 05:15 Hct 29.8 % (36.0-47.0) L 12/29/20 05:15 MCV 88.2 fL (80.0-100.0) 12/29/20 05:15 MCH 29.6 pg (27.0-34.0) 12/29/20 05:15 MCHC 33.6 g/dL (33.0-35.0) 12/29/20 05:15 RDW 14.6 % (11.6-16.5) 12/29/20 05:15 Plt Count 196 X10^3/uL (150.0-450.0) 12/29/20 05:15 MPV 9.9 fL (7.4-11.0) 12/29/20 05:15 Neut % (Auto) 63.3 % (42.0-75.0) 12/29/20 05:15 Lymph % (Auto) 25.5 % (21.0-51.0) 12/29/20 05:15 [place] % (Auto) 6.2 % (0.0-13.0) 12/29/20 05:15 Eos % (Auto) 4.5 % (0.9-2.9) H 12/29/20 05:15 Baso % (Auto) 0.5 % (0.2-1.0) 12/29/20 05:15 Neut # (Auto) 3.2 x10^3/uL (2.2-4.8) 12/29/20 05:15 Lymph # (Auto) 1.3 X10^3/uL (1.3-2.9) 12/29/20 05:15 [place] # (Auto) 0.3 x10^3/uL (0.3-0.8) 12/29/20 05:15 Eos # (Auto) 0.2 x10^3/uL (0.0-0.2) 12/29/20 05:15 Baso # (Auto) 0.0 X10^3/uL (0.0-0.1) 12/29/20 05:15 Absolute Nucleated RBC 0.1 /100WBC 12/29/20 05:15 Sample Site Rr 12/29/20 14:30 ABG pH 7.390 (7.35-7.45) 12/29/20 14:30 ABG pCO2 40.0 mmHg (35.0-45.0) 12/29/20 14:30 ABG pO2 88.0 mmHg (80.0-100.0) 12/29/20 14:30 ABG HCO3 24.2 mmol/L (22-26) 12/29/20 14:30 ABG O2 Saturation 97.0 % (90-100) 12/29/20 14:30 ABG Base Excess -0.7 mmol/L (-2.0-2.0) 12/29/20 14:30 Rodolfo Test Pos 12/29/20 14:30 A-a Gradient 575.0 mmHg 12/29/20 14:30 FiO2 100.0 12/29/20 14:30 Blood Gas Comments [place] well, kh 12/29/20 14:30 Sodium 145 mmol/L (136-145) 12/29/20 05:15 Corrected Sodium TNP 12/29/20 05:15 Potassium 3.8 mmol/L (3.5-5.1) 12/29/20 05:15 Chloride 111 mmol/L (98-107) H 12/29/20 05:15 Carbon Dioxide 24.1 mmol/L (21-32) 12/29/20 05:15 BUN 32 mg/dL (7-18) H 12/29/20 05:15 Creatinine 1.98 mg/dL (0.55-1.02) H 12/29/20 05:15 Est GFR (MDRD) Af Amer 35 (>60) L 12/29/20 05:15 Est GFR (MDRD) Non-Af 29 (>60) L 12/29/20 05:15 Glucose 78 mg/dL (65-99) 12/29/20 05:15 Lactic Acid 1.5 mmol/L (0.4-2.0) 12/28/20 18:55 Calcium 10.1 mg/dL (8.5-10.1) 12/29/20 05:15 Corrected Calcium 10.8 mg/dL (8.5-10.1) H 12/29/20 05:15 Total Bilirubin 0.60 mg/dL (0.2-1.0) 12/29/20 05:15 AST 48 Units/L (15-37) H 12/29/20 05:15 ALT 87 Units/L (12-78) H 12/29/20 05:15 Alkaline Phosphatase 121 Units/L (46-116) H 12/29/20 05:15 Ammonia < 10 umol/L (11-32) L 12/28/20 18:55 B-Natriuretic Peptide 510 pg/mL (0-79) H* 12/29/20 12:01 Total Protein 6.9 g/dL (6.4-8.2) 12/29/20 05:15 Albumin 3.1 g/dL (3.4-5.0) L 12/29/20 05:15 Globulin 3.8 g/dL (2.5-4.5) 12/29/20 05:15 Albumin/Globulin Ratio 0.8 Ratio (1.1-2.1) L 12/29/20 05:15 Specimen Type Catherized urine 12/29/20 12:40 Urine Color Yellow (YELLOW) 12/29/20 12:40 Urine Appearance Cloudy (CLEAR) 12/29/20 12:40 Urine pH 6.0 (5.0 - 8.0) 12/29/20 12:40 Ur Specific [place] 1.015 (1.000-1.030) 12/29/20 12:40 Urine Protein 2+ (NEGATIVE) 12/29/20 12:40 Urine Glucose (UA) Negative (NEGATIVE) 12/29/20 12:40 Urine Ketones Negative (NEGATIVE) 12/29/20 12:40 Urine Occult Blood 1+ (NEGATIVE) 12/29/20 12:40 Urine Nitrite Negative (NEGATIVE) 12/29/20 12:40 Urine Bilirubin Negative (NEGATIVE) 12/29/20 12:40 Urine Urobilinogen Normal (NORMAL) 12/29/20 12:40 Ur Leukocyte Esterase 3+ (NEGATIVE) 12/29/20 12:40 Urine RBC 5-10 /HPF (0-3) A 12/29/20 12:40 Urine WBC 20-30 /HPF (0-5) A 12/29/20 12:40 Ur Squamous Epith Cells Moderate /HPF (NEGATIVE) 12/29/20 12:40 Calcium Oxalate Crystal Few /HPF (NEGATIVE) 12/28/20 10:17 Amorphous Sediment 2+ /HPF (NEGATIVE) 12/29/20 12:40 Urine Bacteria 1+ /HPF (NEGATIVE) 12/29/20 12:40 Urine Yeast Few /HPF (NEGATIVE) 12/29/20 12:40 Ur Culture Indicated? Yes/culture set up 12/29/20 12:40 SARS CoV-2 RNA Rapid PEGGY Negative (NEGATIVE) 12/28/20 12:56 - Plan (1) Altered mental status Status: Acute Plan: CT HEAD ON ADMISSION, BC, LACTIC ACID. ABG, CXR ON ADMISSION AND REPEAT THIS AM. COVID SWAB, VERIFY HOME MEDICATION AND RESUME. SUPPLEMENTAL O2. BP CONTROL, IV HYDRATION, STRICT I&OS. PEG TUBE REPLACEMENT, SOLU MEDROL, IV LASIX, CHAVEZ CATH. CE AND EKG, URINE CULTURE, SPUTUM CULTURE, ZITHROMAX, ZOSYN AND ZYVOX. RESP THERAPY (2) Aspiration into airway Status: Acute (3) Acute dehydration Status: Acute (4) UTI (urinary tract infection) Status: Acute Qualifiers: Urinary tract infection type: acute cystitis Hematuria presence: with hematuria Qualified Code(s): N30.01 - Acute cystitis with hematuria (5) Acute hypotension Status: Acute
[2020-12-29] MEDS: ZYVOX 600MG IV 600 MG/300 ML BAG IV SCH (20:25)
[2020-12-30] MEDS: SOLU-Medrol 125 MG VIAL IVP SCH ×4 (03:05→20:14)
[2020-12-30] MEDS: ROXICODONE TAB 5 MG PO PRN ×2 (03:35→11:30)
[2020-12-30] MEDS: NS 250 ML IV 250 ML IV SCH (04:54)
--- NOTE | 2020-12-30 04:57 | RAD ---
HISTORYPNEUMONIASTUDYCHEST, 1 [id number]/04/2021FINDINGSThe trachea is midline. The cardiac silhouette is unremarkable. The lungs are now clear of acute infiltrates. Pulmonary vasculature within normal limits.. The bony thorax is unremarkable.IMPRESSIONNo acute cardiopulmonary disease.Electronically signed by: Sergio Varela (Dec 30, 2020 04:55:28)
[2020-12-30 05:13] LABS: BASOPHILS % (AUTO) 0.3 % (0.2-1.0); HEMOGLOBIN 9.9 g/dL (12.0-16.0); LYMPHOCYTES % (AUTO) 12.8 % (21.0-51.0); MEAN CORPUSCULAR HEMOGLOBIN 29.9 pg (27.0-34.0); MEAN CORPUSCULAR HGB CONC 34.2 g/dL (33.0-35.0); MEAN CORPUSCULAR VOLUME 87.3 fL (80.0-100.0); MEAN PLATELET VOLUME 10.5 fL (7.4-11.0); MONOCYTES # (AUTO) 0.1 x10^3/uL (0.3-0.8); MONOCYTES % (AUTO) 0.7 % (0.0-13.0); NEUTROPHILS # (AUTO) 6.7 x10^3/uL (2.2-4.8); NEUTROPHILS % (AUTO) 86.2 % (42.0-75.0); PLATELET COUNT 217 X10^3/uL (150.0-450.0); RED BLOOD COUNT 3.32 X10^6/uL (3.5-5.4); RED CELL DISTRIBUTION WIDTH 14.4 % (11.6-16.5); WHITE BLOOD COUNT 7.7 X10^3/uL (3.6-10.0)
[2020-12-30 05:27] LABS: ABG BASE EXCESS 1.2 mmol/L (-2.0-2.0)
[2020-12-30] MEDS: ZOSYN VIAL 3.375 GRAMS 3.375 G in NS 100 ML IV + SPIKE MINIBAG* 100 ML IV SCH ×3 (05:27→22:45)
[2020-12-30 05:28] LABS: ABG ALLEN TEST POS
[2020-12-30 05:33] LABS: ALANINE AMINOTRANSFERASE 87 Units/L (12-78); ALBUMIN 3.5 g/dL (3.4-5.0); ALKALINE PHOSPHATASE 125 Units/L (46-116); ASPARTATE AMINO TRANSFERASE 43 Units/L (15-37); BLOOD UREA NITROGEN 35 mg/dL (7-18); CALCIUM 10.3 mg/dL (8.5-10.1); CARBON DIOXIDE 23.7 mmol/L (21-32); CHLORIDE 107 mmol/L (98-107); COR NA(FOR HYPERGLY) 146 mmol/L (136-145); CREATININE 1.98 mg/dL (0.55-1.02); SODIUM 145 mmol/L (136-145); TOTAL PROTEIN 7.6 g/dL (6.4-8.2); eGFR NON BLACK RACES 29 (>60)
[2020-12-30] MEDS: DUONEB 0.5 MG/3 MG (3 mL) NEB SCH ×4 (08:48→20:20)
[2020-12-30] MEDS: LOVENOX INJ 40 MG SYR SC SCH (09:13)
[2020-12-30] MEDS: ZITHROMAX INJ 500 MG VIAL 500 MG in NS 250 ML IV 250 ML IV SCH (09:13)
[2020-12-30] MEDS: ZYVOX 600MG IV 600 MG/300 ML BAG IV SCH ×2 (09:13→20:15)
[2020-12-30] MEDS: PROzac PO SCH (09:16)
[2020-12-30] MEDS: PEPCID TAB 20 MG PO SCH (09:16)
[2020-12-30] MEDS: COREG TAB 6.25 MG PO SCH ×2 (09:16→20:13)
[2020-12-30] MEDS: GEODON PO SCH ×2 (09:17→20:13)
[2020-12-30] MEDS: ROBITUSSIN DM PO SCH ×4 (09:18→20:14)
[2020-12-30] MEDS: COLACE SYRUP 100 MG UDC PO SCH ×2 (09:18→20:13)
[2020-12-30] MEDS: MORPHINE SULFATE INJ 2 MG INJ IVP PRN ×2 (09:23→17:10)
[2020-12-30] MEDS: XANAX PO PRN (19:20)
[2020-12-31] MEDS: SOLU-Medrol 125 MG VIAL IVP SCH ×4 (03:29→20:10)
[2020-12-31] MEDS: ZOSYN VIAL 3.375 GRAMS 3.375 G in NS 100 ML IV + SPIKE MINIBAG* 100 ML IV SCH ×3 (06:04→21:05)
[2020-12-31] MEDS: NS 1000 ML 1,000 ML IV SCH (06:04)
[2020-12-31 06:14] LABS: BASOPHILS % (AUTO) 0.3 % (0.2-1.0); HEMOGLOBIN 9.2 g/dL (12.0-16.0); LYMPHOCYTES # (AUTO) 0.8 X10^3/uL (1.3-2.9); MEAN CORPUSCULAR HEMOGLOBIN 29.8 pg (27.0-34.0); MEAN CORPUSCULAR HGB CONC 34.1 g/dL (33.0-35.0); MEAN CORPUSCULAR VOLUME 87.5 fL (80.0-100.0); MEAN PLATELET VOLUME 9.8 fL (7.4-11.0); MONOCYTES # (AUTO) 0.1 x10^3/uL (0.3-0.8); MONOCYTES % (AUTO) 1.4 % (0.0-13.0); NEUTROPHILS # (AUTO) 7.7 x10^3/uL (2.2-4.8); NEUTROPHILS % (AUTO) 89.3 % (42.0-75.0); PLATELET COUNT 202 X10^3/uL (150.0-450.0); RED BLOOD COUNT 3.08 X10^6/uL (3.5-5.4); RED CELL DISTRIBUTION WIDTH 14.7 % (11.6-16.5); WHITE BLOOD COUNT 8.6 X10^3/uL (3.6-10.0)
[2020-12-31 06:21] LABS: ALBUMIN 3.2 g/dL (3.4-5.0); CARBON DIOXIDE 24.1 mmol/L (21-32); COR CA(FOR HYPOALB) 10.6 mg/dL (8.5-10.1); CREATININE 1.69 mg/dL (0.55-1.02); TOTAL PROTEIN 6.9 g/dL (6.4-8.2)
[2020-12-31] MEDS ORDERED: K-DUR TAB 20 MEQ PO PRN ×2 (06:30→09:06)
[2020-12-31] MEDS ORDERED: MICRO K EXTEN CAP 10 MEQ PO PRN (06:30)
[2020-12-31] MEDS ORDERED: K-RIDER 10 MEQ/NS 100 ML 10 MEQ/100 ML BAG IV PRN (06:30)
[2020-12-31] MEDS ORDERED: POTASSIUM CHL 40 MEQ/NS 0.45% 500 ML IV PRN (06:30)
[2020-12-31] MEDS ORDERED: POTASSIUM CHL 60 MEQ/NS 0.45% 500 ML IV PRN (06:30)
[2020-12-31] MEDS ORDERED: KLOR-CON ONE (06:34)
[2020-12-31] MEDS: NS 250 ML IV 250 ML IV SCH ×2 (06:45→17:56)
[2020-12-31] MEDS: KLOR-CON PO PRN (06:47)
[2020-12-31] MEDS: COLACE SYRUP 100 MG UDC PO SCH ×2 (08:41→20:52)
[2020-12-31] MEDS: COREG TAB 6.25 MG PO SCH ×2 (08:41→20:53)
[2020-12-31] MEDS: GEODON PO SCH ×2 (08:42→20:53)
[2020-12-31] MEDS: PROzac PO SCH (08:42)
[2020-12-31] MEDS: PEPCID TAB 20 MG PO SCH (08:43)
[2020-12-31] MEDS: ZITHROMAX INJ 500 MG VIAL 500 MG in NS 250 ML IV 250 ML IV SCH (08:43)
[2020-12-31] MEDS: LOVENOX INJ 40 MG SYR SC SCH (08:45)
[2020-12-31] MEDS: ROBITUSSIN DM PO SCH ×4 (08:47→20:53)
[2020-12-31] MEDS: DUONEB 0.5 MG/3 MG (3 mL) NEB SCH ×4 (09:00→21:36)
[2020-12-31] MEDS: ZYVOX 600MG IV 600 MG/300 ML BAG IV SCH ×2 (09:49→20:15)
--- NOTE | 2020-12-31 11:18 | PCM.PROG ---
Progress Note Progress Note for Day of Date of Exam: 12/31/20 Subjective Subjective: Patient seen at bedside, no overnight events. She is currently being treated for aspiration pneumonia, UTI and CHF exacerbation. 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 She is non-verbal and does not follow commands. Patient had PEG tube replaced this admission by Dr. Ashton. She is currently on 3L NC. Labs: Hgb 9.2 BUN/Cr: 31/1.69 down from 1.98 AST/ALT 67/99 Alk Phos 143 Echo: EF 56%, normal global wall motion, RVSP 22 mm Hg Urine Cx: Gram positive cocci Blood Cx neg CXR (-) Plan: continue treatment with IV abx Zosyn/Azithromycin/Zyvox. Continue IV Lasix. Monitor urine output. Continue tube feedings per her home regimen, as well as checking for residual prior to food administration. Supportive care, turn every two hours, skin checks, and head of bed elevated to prevent aspiration. Follow cultures. Monitor AM Labs. Past Medical Family Social History Past Med/Fam/Surg Hx: No changes since H&P Allergies: Allergies No Known Drug Allergies Allergy (Verified 12/28/20 10:10) Review of Systems ROS: No change since H&P Vital Signs and I&O's Vital Signs: Temperature 98.1 F Pulse Rate [Right Brachial] 61 Pulse Rate [Left Brachial] 100 Pulse Rate 88 Respiratory Rate 22 Blood Pressure [Right Arm] 175/84 Blood Pressure [Left Arm] 159/100 Blood Pressure 122/66 O2 Sat by Pulse Oximetry 95 Intake and Output: Intake & Output 12/28/20 12/29/20 12/30/20 12/31/20 23:59 23:59 23:59 23:59 Intake Total 1000 / 1000 2568 / 2568 1556 / 1556 469 / 469 Output Total 1950 / 1950 325 / 325 600 / 600 Balance 1000 / 1000 618 / 618 1231 / 1231 -131 / -131 Physical Exam Oriented: Unable to test Eyes: Normal Ear: Normal Nose: Normal Throat: Dry Respiratory: Rhonchi Cardiovascular: Normal; negative Edema Auscultation: Bowel Sounds: Normal Tenderness: Normal Skin: Decreased Turgur Musculoskeletal: Motor Deficit and Sensory Deficit Mood Description: Flat Affect: Flat Speech Pattern: Aphasic Laboratory and Diagnostics Result Diagrams: 12/31/20 05:59 12/31/20 08:15 Labs: 12/29/20 12:40 Urine,Catheterized Urine Culture - Final Enterococcus Faecalis 12/28/20 18:55 Blood Blood Culture - Preliminary 12/28/20 18:50 Blood Blood Culture - Preliminary Laboratory WBC 8.6 X10^3/uL (3.6-10.0) 12/31/20 05:59 RBC 3.08 X10^6/uL (3.5-5.4) L 12/31/20 05:59 Hgb 9.2 g/dL (12.0-16.0) L 12/31/20 05:59 Hct 27.0 % (36.0-47.0) L 12/31/20 05:59 MCV 87.5 fL (80.0-100.0) 12/31/20 05:59 MCH 29.8 pg (27.0-34.0) 12/31/20 05:59 MCHC 34.1 g/dL (33.0-35.0) 12/31/20 05:59 RDW 14.7 % (11.6-16.5) 12/31/20 05:59 Plt Count 202 X10^3/uL (150.0-450.0) 12/31/20 05:59 MPV 9.8 fL (7.4-11.0) 12/31/20 05:59 Neut % (Auto) 89.3 % (42.0-75.0) H 12/31/20 05:59 Lymph % (Auto) 9.0 % (21.0-51.0) L 12/31/20 05:59 [place] % (Auto) 1.4 % (0.0-13.0) 12/31/20 05:59 Eos % (Auto) 0.0 % (0.9-2.9) L 12/31/20 05:59 Baso % (Auto) 0.3 % (0.2-1.0) 12/31/20 05:59 Neut # (Auto) 7.7 x10^3/uL (2.2-4.8) H 12/31/20 05:59 Lymph # (Auto) 0.8 X10^3/uL (1.3-2.9) L 12/31/20 05:59 [place] # (Auto) 0.1 x10^3/uL (0.3-0.8) L 12/31/20 05:59 Eos # (Auto) 0.0 x10^3/uL (0.0-0.2) 12/31/20 05:59 Baso # (Auto) 0.0 X10^3/uL (0.0-0.1) 12/31/20 05:59 Absolute Nucleated RBC 0.0 /100WBC 12/31/20 05:59 Sample Site Rr 12/30/20 05:00 ABG pH 7.410 (7.35-7.45) 12/30/20 05:00 ABG pCO2 41.0 mmHg (35.0-45.0) 12/30/20 05:00 ABG pO2 94.0 mmHg (80.0-100.0) 12/30/20 05:00 ABG HCO3 26.0 mmol/L (22-26) 12/30/20 05:00 ABG O2 Saturation 97.0 % (90-100) 12/30/20 05:00 ABG Base Excess 1.2 mmol/L (-2.0-2.0) 12/30/20 05:00 Rodolfo Test Pos 12/30/20 05:00 A-a Gradient 354.0 mmHg 12/30/20 05:00 FiO2 70.0 12/30/20 05:00 Blood Gas Comments [place] well 12/30/20 05:00 Sodium 146 mmol/L (136-145) H 12/31/20 05:59 Corrected Sodium 146 mmol/L (136-145) H 12/31/20 05:59 Potassium 3.7 mmol/L (3.5-5.1) 12/31/20 08:15 Chloride 110 mmol/L (98-107) H 12/31/20 05:59 Carbon Dioxide 24.1 mmol/L (21-32) 12/31/20 05:59 BUN 31 mg/dL (7-18) H 12/31/20 05:59 Creatinine 1.69 mg/dL (0.55-1.02) H 12/31/20 05:59 Est GFR (MDRD) Af Amer 42 (>60) L 12/31/20 05:59 Est GFR (MDRD) Non-Af 34 (>60) L 12/31/20 05:59 Glucose 112 mg/dL (65-99) H 12/31/20 05:59 Lactic Acid 1.5 mmol/L (0.4-2.0) 12/28/20 18:55 Calcium 10.0 mg/dL (8.5-10.1) 12/31/20 05:59 Corrected Calcium 10.6 mg/dL (8.5-10.1) H 12/31/20 05:59 Magnesium 2.0 mg/dL (1.7-2.9) 12/31/20 05:59 Total Bilirubin 0.90 mg/dL (0.2-1.0) 12/31/20 05:59 AST 67 Units/L (15-37) H 12/31/20 05:59 ALT 99 Units/L (12-78) H 12/31/20 05:59 Alkaline Phosphatase 143 Units/L (46-116) H 12/31/20 05:59 Ammonia < 10 umol/L (11-32) L 12/28/20 18:55 B-Natriuretic Peptide 510 pg/mL (0-79) H* 12/29/20 12:01 Total Protein 6.9 g/dL (6.4-8.2) 12/31/20 05:59 Albumin 3.2 g/dL (3.4-5.0) L 12/31/20 05:59 Globulin 3.7 g/dL (2.5-4.5) 12/31/20 05:59 Albumin/Globulin Ratio 0.9 Ratio (1.1-2.1) L 12/31/20 05:59 Specimen Type Catherized urine 12/29/20 12:40 Urine Color Yellow (YELLOW) 12/29/20 12:40 Urine Appearance Cloudy (CLEAR) 12/29/20 12:40 Urine pH 6.0 (5.0 - 8.0) 12/29/20 12:40 Ur Specific [place] 1.015 (1.000-1.030) 12/29/20 12:40 Urine Protein 2+ (NEGATIVE) 12/29/20 12:40 Urine Glucose (UA) Negative (NEGATIVE) 12/29/20 12:40 Urine Ketones Negative (NEGATIVE) 12/29/20 12:40 Urine Occult Blood 1+ (NEGATIVE) 12/29/20 12:40 Urine Nitrite Negative (NEGATIVE) 12/29/20 12:40 Urine Bilirubin Negative (NEGATIVE) 12/29/20 12:40 Urine Urobilinogen Normal (NORMAL) 12/29/20 12:40 Ur Leukocyte Esterase 3+ (NEGATIVE) 12/29/20 12:40 Urine RBC 5-10 /HPF (0-3) A 12/29/20 12:40 Urine WBC 20-30 /HPF (0-5) A 12/29/20 12:40 Ur Squamous Epith Cells Moderate /HPF (NEGATIVE) 12/29/20 12:40 Calcium Oxalate Crystal Few /HPF (NEGATIVE) 12/28/20 10:17 Amorphous Sediment 2+ /HPF (NEGATIVE) 12/29/20 12:40 Urine Bacteria 1+ /HPF (NEGATIVE) 12/29/20 12:40 Urine Yeast Few /HPF (NEGATIVE) 12/29/20 12:40 Ur Culture Indicated? Yes/culture set up 12/29/20 12:40 SARS CoV-2 RNA Rapid PEGGY Negative (NEGATIVE) 12/28/20 12:56 Plan (1) Altered mental status: Status: Acute Qualifiers: Altered mental status type: unspecified Qualified Code(s): R41.82 - Altered mental status, unspecified Plan: CT HEAD ON ADMISSION, BC, LACTIC ACID ABG, CXR ON ADMISSION AND REPEAT THIS AM COVID SWAB, VERIFY HOME MEDICATION AND RESUME. SUPPLEMENTAL O2 BP CONTROL, IV HYDRATION, STRICT I&OS PEG TUBE REPLACEMENT, SOLU MEDROL, IV LASIX, CHAVEZ CATH CE AND EKG, URINE CULTURE, SPUTUM CULTURE, ZITHROMAX, ZOSYN AND ZYVOX. RESP THERAPY (2) Aspiration into airway: Status: Acute Qualifiers: Encounter type: sequela Qualified Code(s): T17.908S - Unspecified foreign body in respiratory tract, part unspecified causing other injury, sequela (3) Acute dehydration: Status: Acute (4) UTI (urinary tract infection): Status: Acute Qualifiers: Hematuria presence: with hematuria Urinary tract infection type: acute cystitis Qualified Code(s): N30.01 - Acute cystitis with hematuria (5) Acute hypotension: Status: Acute (6) Acute renal failure: Status: Acute Qualifiers: Acute renal failure type: unspecified Qualified Code(s): N17.9 - Acute kidney failure, unspecified (7) PEG (percutaneous endoscopic gastrostomy) status: Status: Acute (8) Chronic cerebrovascular accident (CVA): Status: Acute
[2020-12-31] MEDS: TRANSDERM-SCOP TD SCH (14:17)
[2020-12-31] MEDS: APRESOLINE INJ 20 MG VIAL IVP PRN ×2 (15:40→20:07)
[2020-12-31] MEDS: MORPHINE SULFATE INJ 2 MG INJ IVP PRN ×2 (15:41→20:01)
--- NOTE | 2020-12-31 16:05 | RAD ---
HISTORYPneumonia hypoxia SOBSTUDYPortable AP [id number]/05/2021FINDINGSContinued normal heart size with essentially clear lungs and pleural spaces. Slight prominence of the central pulmonary vessels may be related to nonstandard technical f actors. No consolidation, pulmonary edema or pneumothorax.IMPRESSIONNo acute chest abnormality identi fied.Electronically signed by: FIDEL CAMACHO (Dec 31, 2020 16:03:53)
[2020-12-31] MEDS: ATIVAN INJ 2 MG VIAL IVP PRN ×2 (16:18→23:18)
[2020-12-31] MEDS ORDERED: ATIVAN INJ 2 MG VIAL IVP ONE (16:21)
[2020-12-31 16:48] LABS: ABG BASE EXCESS -1.6 mmol/L (-2.0-2.0); ABG HCO3 20.6 mmol/L (22-26)
[2020-12-31 16:49] LABS: ABG ALLEN TEST POS
[2020-12-31] MEDS ORDERED: NORMODYNE INJ 20 MG VIAL IVP ONE ×3 (17:00→22:15)
[2020-12-31] MEDS ORDERED: NORMODYNE INJ 20 MG VIAL ONE ×2 (17:03→17:47)
[2020-12-31] MEDS: XANAX PO PRN (18:14)
[2020-12-31] MEDS: ROXICODONE TAB 5 MG PO PRN (18:14)
--- NOTE | 2020-12-31 20:07 | RAD ---
STUDY: SINGLE VIEW OF THE ABDOMENCOMPARISON: NoneHISTORY: Possible Displaced Peg Tube (Feces coming thru tube, not able to use contrast)FINDINGS:Bowel gas pattern is nonobstructive.There is no gross evidence of free air in the abdomen.There are no abnormal masses or calcification seen.The visualized bones demonstrate degenerative changes.There is a PEG tube seen overlying the left upper mid abdomen which may be in the region of the stomach. However, the exam is markedly limited because contrast was not administered for positioning.IMPRESSION:1. There is a PEG tube seen overlying the left upper mid abdomen which may be in the region of the stomach. However, the exam is markedly limited because contrast was not administered for positioning.Electronically signed by: Mikey Ramirez (Dec 31, 2020 20:04:59)
[2020-12-31] MEDS ORDERED: LABETALOL HCL IVP ONE (22:02)
[2020-12-31] MEDS ORDERED: CATAPRES-TTS-1 TD SCH (23:00)
[2021-01-01] MEDS: MORPHINE SULFATE INJ 2 MG INJ IVP PRN ×5 (00:12→19:25)
[2021-01-01] MEDS: APRESOLINE INJ 20 MG VIAL IVP PRN ×3 (00:12→16:49)
[2021-01-01] MEDS ORDERED: ATIVAN INJ 2 MG VIAL IVP ONE ×2 (02:24→18:10)
[2021-01-01] MEDS: NITROGLYCERIN IV PREMIX 50 MG 50 MG/250 ML BAG IV PRN ×2 (02:49→17:53)
[2021-01-01] MEDS: SOLU-Medrol 125 MG VIAL IVP SCH ×2 (03:46→08:39)
[2021-01-01] MEDS: NS 250 ML IV 250 ML IV SCH ×3 (05:39→21:08)
[2021-01-01] MEDS: ZOSYN VIAL 3.375 GRAMS 3.375 G in NS 100 ML IV + SPIKE MINIBAG* 100 ML IV SCH ×3 (05:39→21:08)
[2021-01-01 06:38] LABS: BASOPHILS % (AUTO) 0.2 % (0.2-1.0); HEMATOCRIT 33.4 % (36.0-47.0); HEMOGLOBIN 10.8 g/dL (12.0-16.0); MEAN CORPUSCULAR HEMOGLOBIN 28.6 pg (27.0-34.0); MEAN CORPUSCULAR HGB CONC 32.3 g/dL (33.0-35.0); MEAN CORPUSCULAR VOLUME 88.5 fL (80.0-100.0); MEAN PLATELET VOLUME 9.4 fL (7.4-11.0); MONOCYTES # (AUTO) 0.8 x10^3/uL (0.3-0.8); MONOCYTES % (AUTO) 5.2 % (0.0-13.0); NEUTROPHILS # (AUTO) 14.3 x10^3/uL (2.2-4.8); NEUTROPHILS % (AUTO) 88.6 % (42.0-75.0); PLATELET COUNT 291 X10^3/uL (150.0-450.0); RED BLOOD COUNT 3.78 X10^6/uL (3.5-5.4); RED CELL DISTRIBUTION WIDTH 14.8 % (11.6-16.5); WHITE BLOOD COUNT 16.1 X10^3/uL (3.6-10.0)
[2021-01-01 06:53] LABS: BLOOD UREA NITROGEN 28 mg/dL (7-18); CALCIUM 9.9 mg/dL (8.5-10.1); CARBON DIOXIDE 23.4 mmol/L (21-32); CHLORIDE 107 mmol/L (98-107); CREATININE 1.38 mg/dL (0.55-1.02); SODIUM 143 mmol/L (136-145); eGFR NON BLACK RACES 43 (>60)
[2021-01-01] MEDS: COREG TAB 6.25 MG PO SCH ×2 (08:38→20:37)
[2021-01-01] MEDS: GEODON PO SCH ×2 (08:38→20:36)
[2021-01-01] MEDS: PEPCID TAB 20 MG PO SCH (08:38)
[2021-01-01] MEDS: PROzac PO SCH (08:38)
[2021-01-01] MEDS: COLACE SYRUP 100 MG UDC PO SCH ×2 (08:38→20:36)
[2021-01-01] MEDS: LOVENOX INJ 40 MG SYR SC SCH (08:40)
[2021-01-01] MEDS: ZITHROMAX INJ 500 MG VIAL 500 MG in NS 250 ML IV 250 ML IV SCH (08:41)
[2021-01-01] MEDS: ROBITUSSIN DM PO SCH ×4 (08:59→20:37)
[2021-01-01] MEDS: DUONEB 0.5 MG/3 MG (3 mL) NEB SCH ×4 (09:00→20:41)
[2021-01-01] MEDS: ATIVAN INJ 2 MG VIAL IVP PRN ×3 (09:10→19:28)
[2021-01-01] MEDS: ROXICODONE TAB 5 MG PO SCH ×2 (10:20→17:36)
[2021-01-01] MEDS: XANAX PO SCH ×2 (10:21→20:36)
--- NOTE | 2021-01-01 11:28 | PCM.PROG ---
Progress Note Progress Note for Day of Date of Exam: 01/01/21 Subjective Subjective: Patient seen at bedside. Overnight, patient's BP has been extremely elevated, SBP in 200s and DBP in 100s. She received multiple doses of labetalol IV and hydralazine IV but BP continued to remain elevated. She was started on clonidine patch and also nitro drip. Unclear if patient was withdrawing from opioids/benzos. She is on chronic opioid/benzo medications. She has been getting Ativan, Xanax, morphine and Oxycodone here. She also did receive extra doses of Ativan as she was agitated and pulling at things. She had to be placed on Bipap briefly because she was desaturating on nasal cannula but due to patient becoming more agitated and BP being elevated, she was placed back on NC at 5L. She is currently on 4L with sats above 90%. Patient's last BP is 160/96 and she is on Nitro 45 at this time. Patient is resting in bed. Labs: WBC 16.1 Hgb 10.8 BUN/Cr: 28/1.38 (1.69) K 3.0 Glucose 105 ABG on Bipap: 7.49/27/144/20 at 70% Bipap CXR yesterday: negative for acute infection or effusion Echo: EF 56%, normal global wall motion, RVSP 22 mm Hg Urine Cx: Enterococcus faecalis Blood Cx neg Plan: Wean nitro drip as tolerated. Continue to monitor BP closely. Resume Lo trel. Wean O2 as tolerated to keep sats > 92%. Will DC zyvox due to no MRSA in cultures. DC solumedrol as that might be causing agitation. Will schedule Xanax to 0.5 mg BID and change Oxycodone to home dose 5mg TID. Continue prn morphine and Ativan. Continue clonidine patch. Replace K as per protocol. Monitor AM labs. Time spent for clinical assessment, reviewing labs/imaging, physical exam, d ecision making and documentation greater than 75 mins. Past Medical Family Social History Past Med/Fam/Surg Hx: No changes since H&P Allergies: Allergies No Known Drug Allergies Allergy (Verified 12/28/20 10:10) Review of Systems ROS: No change since H&P Vital Signs and I&O's Vital Signs: Temperature 97.8 F Pulse Rate [Right Brachial] 74 Pulse Rate [Left Brachial] 100 Pulse Rate 81 Respiratory Rate 24 Blood Pressure [Right Arm] 160/96 Blood Pressure [Left Arm] 159/100 Blood Pressure 122/66 O2 Sat by Pulse Oximetry 96 Intake and Output: Intake & Output 12/29/20 12/30/20 12/31/20 01/01/21 23:59 23:59 23:59 23:59 Intake Total 2568 / 2568 1556 / 1556 1297 / 1297 241 / 241 Output Total 1950 / 1950 325 / 325 2600 / 2600 800 / 800 Balance 618 / 618 1231 / 1231 -1303 / -1303 -559 / -559 Physical Exam Oriented: Unable to test Eyes: Normal Ear: Normal Nose: Normal Throat: Dry Respiratory: Rhonchi Cardiovascular: Normal; negative Edema Auscultation: Bowel Sounds: Normal Tenderness: Normal Skin: Decreased Turgur Musculoskeletal: Motor Deficit and Sensory Deficit Mood Description: Flat Affect: Flat Speech Pattern: Aphasic Laboratory and Diagnostics Result Diagrams: 01/01/21 05:20 01/01/21 05:20 Labs: 12/29/20 12:40 Urine,Catheterized Urine Culture - Final Enterococcus Faecalis 12/28/20 18:55 Blood Blood Culture - Preliminary 12/28/20 18:50 Blood Blood Culture - Preliminary Laboratory WBC 16.1 X10^3/uL (3.6-10.0) H 01/01/21 05:20 RBC 3.78 X10^6/uL (3.5-5.4) 01/01/21 05:20 Hgb 10.8 g/dL (12.0-16.0) L 01/01/21 05:20 Hct 33.4 % (36.0-47.0) L 01/01/21 05:20 MCV 88.5 fL (80.0-100.0) 01/01/21 05:20 MCH 28.6 pg (27.0-34.0) 01/01/21 05:20 MCHC 32.3 g/dL (33.0-35.0) L 01/01/21 05:20 RDW 14.8 % (11.6-16.5) 01/01/21 05:20 Plt Count 291 X10^3/uL (150.0-450.0) 01/01/21 05:20 MPV 9.4 fL (7.4-11.0) 01/01/21 05:20 Neut % (Auto) 88.6 % (42.0-75.0) H 01/01/21 05:20 Lymph % (Auto) 6.0 % (21.0-51.0) L 01/01/21 05:20 [place] % (Auto) 5.2 % (0.0-13.0) 01/01/21 05:20 Eos % (Auto) 0.0 % (0.9-2.9) L 01/01/21 05:20 Baso % (Auto) 0.2 % (0.2-1.0) 01/01/21 05:20 Neut # (Auto) 14.3 x10^3/uL (2.2-4.8) H 01/01/21 05:20 Lymph # (Auto) 1.0 X10^3/uL (1.3-2.9) L 01/01/21 05:20 [place] # (Auto) 0.8 x10^3/uL (0.3-0.8) 01/01/21 05:20 Eos # (Auto) 0.0 x10^3/uL (0.0-0.2) 01/01/21 05:20 Baso # (Auto) 0.0 X10^3/uL (0.0-0.1) 01/01/21 05:20 Absolute Nucleated RBC 0.0 /100WBC 01/01/21 05:20 Sample Site Rr 12/31/20 16:32 ABG pH 7.490 (7.35-7.45) H 12/31/20 16:32 ABG pCO2 27.0 mmHg (35.0-45.0) L 12/31/20 16:32 ABG pO2 144.0 mmHg (80.0-100.0) H 12/31/20 16:32 ABG HCO3 20.6 mmol/L (22-26) L 12/31/20 16:32 ABG O2 Saturation 99.0 % (90-100) 12/31/20 16:32 ABG Base Excess -1.6 mmol/L (-2.0-2.0) 12/31/20 16:32 Rodolfo Test Pos 12/31/20 16:32 A-a Gradient 321.0 mmHg 12/31/20 16:32 FiO2 70.0 12/31/20 16:32 Blood Gas Comments [place] well mt 12/31/20 16:32 Sodium 143 mmol/L (136-145) 01/01/21 05:20 Corrected Sodium TNP 01/01/21 05:20 Potassium 3.0 mmol/L (3.5-5.1) L* 01/01/21 05:20 Chloride 107 mmol/L (98-107) 01/01/21 05:20 Carbon Dioxide 23.4 mmol/L (21-32) 01/01/21 05:20 BUN 28 mg/dL (7-18) H 01/01/21 05:20 Creatinine 1.38 mg/dL (0.55-1.02) H 01/01/21 05:20 Est GFR (MDRD) Af Amer 52 (>60) L 01/01/21 05:20 Est GFR (MDRD) Non-Af 43 (>60) L 01/01/21 05:20 Glucose 105 mg/dL (65-99) H 01/01/21 05:20 Lactic Acid 1.5 mmol/L (0.4-2.0) 12/28/20 18:55 Calcium 9.9 mg/dL (8.5-10.1) 01/01/21 05:20 Corrected Calcium 10.6 mg/dL (8.5-10.1) H 12/31/20 05:59 Magnesium 1.8 mg/dL (1.7-2.9) 01/01/21 05:20 Total Bilirubin 0.90 mg/dL (0.2-1.0) 12/31/20 05:59 AST 67 Units/L (15-37) H 12/31/20 05:59 ALT 99 Units/L (12-78) H 12/31/20 05:59 Alkaline Phosphatase 143 Units/L (46-116) H 12/31/20 05:59 Ammonia < 10 umol/L (11-32) L 12/28/20 18:55 B-Natriuretic Peptide 510 pg/mL (0-79) H* 12/29/20 12:01 Total Protein 6.9 g/dL (6.4-8.2) 12/31/20 05:59 Albumin 3.2 g/dL (3.4-5.0) L 12/31/20 05:59 Globulin 3.7 g/dL (2.5-4.5) 12/31/20 05:59 Albumin/Globulin Ratio 0.9 Ratio (1.1-2.1) L 12/31/20 05:59 Specimen Type Catherized urine 12/29/20 12:40 Urine Color Yellow (YELLOW) 12/29/20 12:40 Urine Appearance Cloudy (CLEAR) 12/29/20 12:40 Urine pH 6.0 (5.0 - 8.0) 12/29/20 12:40 Ur Specific [place] 1.015 (1.000-1.030) 12/29/20 12:40 Urine Protein 2+ (NEGATIVE) 12/29/20 12:40 Urine Glucose (UA) Negative (NEGATIVE) 12/29/20 12:40 Urine Ketones Negative (NEGATIVE) 12/29/20 12:40 Urine Occult Blood 1+ (NEGATIVE) 12/29/20 12:40 Urine Nitrite Negative (NEGATIVE) 12/29/20 12:40 Urine Bilirubin Negative (NEGATIVE) 12/29/20 12:40 Urine Urobilinogen Normal (NORMAL) 12/29/20 12:40 Ur Leukocyte Esterase 3+ (NEGATIVE) 12/29/20 12:40 Urine RBC 5-10 /HPF (0-3) A 12/29/20 12:40 Urine WBC 20-30 /HPF (0-5) A 12/29/20 12:40 Ur Squamous Epith Cells Moderate /HPF (NEGATIVE) 12/29/20 12:40 Calcium Oxalate Crystal Few /HPF (NEGATIVE) 12/28/20 10:17 Amorphous Sediment 2+ /HPF (NEGATIVE) 12/29/20 12:40 Urine Bacteria 1+ /HPF (NEGATIVE) 12/29/20 12:40 Urine Yeast Few /HPF (NEGATIVE) 12/29/20 12:40 Ur Culture Indicated? Yes/culture set up 12/29/20 12:40 SARS CoV-2 RNA Rapid PEGGY Negative (NEGATIVE) 12/28/20 12:56 Plan (1) Accelerated essential hypertension: Status: Acute (2) Altered mental status: Status: Acute Qualifiers: Altered mental status type: unspecified Qualified Code(s): R41.82 - Altered mental status, unspecified (3) Aspiration into airway: Status: Acute Qualifiers: Encounter type: sequela Qualified Code(s): T17.908S - Unspecified foreign body in respiratory tract, part unspecified causing other injury, sequela (4) Acute dehydration: Status: Acute (5) UTI (urinary tract infection): Status: Acute Qualifiers: Hematuria presence: with hematuria Urinary tract infection type: acute cystitis Qualified Code(s): N30.01 - Acute cystitis with hematuria (6) Acute hypotension: Status: Acute (7) Acute renal failure: Status: Acute Qualifiers: Acute renal failure type: unspecified Qualified Code(s): N17.9 - Acute kidney failure, unspecified (8) PEG (percutaneous endoscopic gastrostomy) status: Status: Acute (9) Chronic cerebrovascular accident (CVA): Status: Acute
[2021-01-01] MEDS ORDERED: AMLODIPINE BENAZEPRIL PO SCH (11:45)
[2021-01-01] MEDS: MAGNESIUM SULFATE 1 GRAM/100 mL PREMIX 1 GM/100 ML BAG IV PRN ×2 (12:49→14:06)
[2021-01-01] MEDS ORDERED: LOTENSIN TAB 10 MG PO ONE (13:54)
[2021-01-01] MEDS ORDERED: NORVASC TAB 5 MG PO ONE (13:54)
[2021-01-01] MEDS: NORVASC TAB 5 MG PO SCH (14:35)
[2021-01-01] MEDS: LOTENSIN TAB 10 MG PO SCH (14:36)
[2021-01-01] MEDS ORDERED: MORPHINE SULFATE INJ 4 MG IVP ONE (17:04)
[2021-01-01] MEDS ORDERED: MORPHINE SULFATE INJ 4 MG ONE (17:06)
[2021-01-01] MEDS ORDERED: ATIVAN INJ 2 MG VIAL ONE (18:12)
[2021-01-01] MEDS ORDERED: NORMODYNE INJ 20 MG VIAL IVP ONE (19:02)
[2021-01-02] MEDS: MORPHINE SULFATE INJ 2 MG INJ IVP PRN ×4 (00:01→14:04)
[2021-01-02] MEDS: ROXICODONE TAB 5 MG PO SCH ×3 (01:24→17:45)
[2021-01-02] MEDS: ATIVAN INJ 2 MG VIAL IVP PRN ×4 (01:31→20:31)
[2021-01-02] MEDS: ZOSYN VIAL 3.375 GRAMS 3.375 G in NS 100 ML IV + SPIKE MINIBAG* 100 ML IV SCH ×3 (05:55→21:45)
[2021-01-02] MEDS: NITROGLYCERIN IV PREMIX 50 MG 50 MG/250 ML BAG IV PRN ×2 (06:40→17:25)
[2021-01-02 06:50] LABS: BASOPHILS % (AUTO) 0.2 % (0.2-1.0); HEMATOCRIT 29.2 % (36.0-47.0); HEMOGLOBIN 9.6 g/dL (12.0-16.0); LYMPHOCYTES # (AUTO) 1.5 X10^3/uL (1.3-2.9); LYMPHOCYTES % (AUTO) 13.2 % (21.0-51.0); MEAN CORPUSCULAR HEMOGLOBIN 28.8 pg (27.0-34.0); MEAN CORPUSCULAR HGB CONC 32.9 g/dL (33.0-35.0); MEAN CORPUSCULAR VOLUME 87.5 fL (80.0-100.0); MEAN PLATELET VOLUME 8.6 fL (7.4-11.0); MONOCYTES # (AUTO) 0.6 x10^3/uL (0.3-0.8); MONOCYTES % (AUTO) 5.8 % (0.0-13.0); NEUTROPHILS % (AUTO) 80.8 % (42.0-75.0); PLATELET COUNT 202 X10^3/uL (150.0-450.0); RED BLOOD COUNT 3.33 X10^6/uL (3.5-5.4); RED CELL DISTRIBUTION WIDTH 14.2 % (11.6-16.5); WHITE BLOOD COUNT 11.1 X10^3/uL (3.6-10.0)
[2021-01-02 06:51] LABS: BLOOD UREA NITROGEN 23 mg/dL (7-18); CARBON DIOXIDE 23.9 mmol/L (21-32); CHLORIDE 105 mmol/L (98-107); CREATININE 1.27 mg/dL (0.55-1.02); MAGNESIUM 2.2 mg/dL (1.7-2.9); SODIUM 140 mmol/L (136-145); eGFR NON BLACK RACES 48 (>60)
[2021-01-02] MEDS: ZITHROMAX INJ 500 MG VIAL 500 MG in NS 250 ML IV 250 ML IV SCH (08:02)
[2021-01-02] MEDS: COLACE SYRUP 100 MG UDC PO SCH ×2 (08:05→20:58)
[2021-01-02] MEDS: POTASSIUM CHLORIDE LIQ 20 MEQ UDC PO PRN ×2 (08:07→10:21)
[2021-01-02] MEDS: ROBITUSSIN DM PO SCH ×4 (08:10→20:59)
[2021-01-02] MEDS: GEODON PO SCH (08:10)
[2021-01-02] MEDS: COREG TAB 6.25 MG PO SCH ×2 (08:11→20:58)
[2021-01-02] MEDS: PEPCID TAB 20 MG PO SCH (08:12)
[2021-01-02] MEDS: LOVENOX INJ 40 MG SYR SC SCH (08:13)
[2021-01-02] MEDS: NORVASC TAB 5 MG PO SCH (08:14)
[2021-01-02] MEDS: LOTENSIN TAB 10 MG PO SCH ×3 (08:15→20:59)
[2021-01-02] MEDS: PROzac PO SCH (08:15)
[2021-01-02] MEDS: XANAX PO SCH ×2 (08:16→20:59)
[2021-01-02] MEDS: NS 250 ML IV 250 ML IV SCH (08:54)
[2021-01-02] MEDS ORDERED: LOTENSIN TAB 10 MG PO SCH (09:00)
[2021-01-02] MEDS ORDERED: NORVASC TAB 5 MG PO SCH (09:00)
[2021-01-02 09:10] LABS: ABG ALLEN TEST POS; ABG BASE EXCESS -0.7 mmol/L (-2.0-2.0); ABG HCO3 23.4 mmol/L (22-26)
[2021-01-02] MEDS: DUONEB 0.5 MG/3 MG (3 mL) NEB SCH ×4 (09:20→20:55)
[2021-01-02] MEDS: APRESOLINE INJ 20 MG VIAL IVP PRN (17:46)
--- NOTE | 2021-01-02 18:47 | RAD ---
HISTORYHYPOXIASTUDYCHEST, 1 VIEWCOMPARISONMar 2020FINDINGSThe trachea is midline. The cardiac silhouette is unremarkable . The lungs demonstrate some left perihilar hazy interstitial infiltrate which could be on the basis of early pneumonia the bony thorax is unremarkable.IMPRESSIONHazy left upper interstitial infiltrates which could be on the basis of early changes of pneumonia.Electronically signed by: WILI ZABALA (Jan 02, 2021 18:45:13)
[2021-01-02] MEDS: LASIX IVP SCH (19:21)
[2021-01-02] MEDS ORDERED: CATAPRES-TTS-2 TD SCH (20:00)
[2021-01-02] MEDS ORDERED: GEODON PO SCH (21:00)
[2021-01-02] MEDS ORDERED: LASIX IVP ONE ×2 (21:25→21:41)
[2021-01-02] MEDS ORDERED: CATAPRES TAB 0.1 MG PEG PRN (21:27)
[2021-01-02 21:32] LABS: ABG BASE EXCESS 0.7 mmol/L (-2.0-2.0); ABG HCO3 25.4 mmol/L (22-26)
[2021-01-02 21:33] LABS: ABG ALLEN TEST POS
[2021-01-02 22:33] LABS: CKMB % 4.4 % (<4); CREATINE KINASE MB 2.7 ng/mL (0-4.0); TROPONIN I 0.06 ng/mL (0-1.5)
[2021-01-03 00:47] LABS: ALANINE AMINOTRANSFERASE 56 Units/L (12-78); ALBUMIN 3.2 g/dL (3.4-5.0); ALKALINE PHOSPHATASE 100 Units/L (46-116); ASPARTATE AMINO TRANSFERASE 21 Units/L (15-37); BLOOD UREA NITROGEN 21 mg/dL (7-18); CARBON DIOXIDE 25.8 mmol/L (21-32); CHLORIDE 102 mmol/L (98-107); COR CA(FOR HYPOALB) 9.6 mg/dL (8.5-10.1); CREATININE 1.25 mg/dL (0.55-1.02); SODIUM 139 mmol/L (136-145); TOTAL PROTEIN 6.6 g/dL (6.4-8.2); eGFR NON BLACK RACES 49 (>60)
[2021-01-03] MEDS: KLOR-CON PO PRN (01:20)
[2021-01-03] MEDS: ATIVAN INJ 2 MG VIAL IVP PRN (01:54)
[2021-01-03] MEDS: ROXICODONE TAB 5 MG PO SCH (03:14)
[2021-01-03] MEDS: NS 250 ML IV 250 ML IV SCH (04:10)
[2021-01-03] MEDS: ZOSYN VIAL 3.375 GRAMS 3.375 G in NS 100 ML IV + SPIKE MINIBAG* 100 ML IV SCH (05:10)
[2021-01-03 05:28] LABS: ABG BASE EXCESS 0.2 mmol/L (-2.0-2.0); ABG HCO3 23.3 mmol/L (22-26)
[2021-01-03 05:29] LABS: ABG ALLEN TEST POS
--- NOTE | 2021-01-03 06:28 | RAD ---
HISTORYF/USTUDYCHEST, 1 [id number]/08/2021.TECHNIQUEAP view of the chestFINDINGSThere is a new right perihilar airspace opacity. The cardiac silhouette is stably enlarged. Mediastinal contours prominent likely secondary to technique. Left lung is grossly clear. There is blunting of the right costophrenic sulcus. No discernible pneumothorax.IMPRESSIONNew right perihilar opacity may represent atelectasis or infiltrate. Suspect small right pleural effusion.Electronically signed by: Cory Arriaga (Jan 03, 2021 06:25:47)
[2021-01-03 06:54] LABS: BASOPHILS % (AUTO) 0.2 % (0.2-1.0); EOSINOPHILS % (AUTO) 0.2 % (0.9-2.9); HEMATOCRIT 29.3 % (36.0-47.0); LYMPHOCYTES # (AUTO) 1.5 X10^3/uL (1.3-2.9); LYMPHOCYTES % (AUTO) 11.6 % (21.0-51.0); MEAN CORPUSCULAR HEMOGLOBIN 29.8 pg (27.0-34.0); MEAN CORPUSCULAR HGB CONC 34.1 g/dL (33.0-35.0); MEAN CORPUSCULAR VOLUME 87.2 fL (80.0-100.0); MEAN PLATELET VOLUME 8.9 fL (7.4-11.0); MONOCYTES # (AUTO) 0.5 x10^3/uL (0.3-0.8); MONOCYTES % (AUTO) 3.7 % (0.0-13.0); NEUTROPHILS # (AUTO) 10.9 x10^3/uL (2.2-4.8); NEUTROPHILS % (AUTO) 84.3 % (42.0-75.0); PLATELET COUNT 165 X10^3/uL (150.0-450.0); RED BLOOD COUNT 3.36 X10^6/uL (3.5-5.4); RED CELL DISTRIBUTION WIDTH 14.2 % (11.6-16.5); WHITE BLOOD COUNT 12.9 X10^3/uL (3.6-10.0)
[2021-01-03 07:10] LABS: ALANINE AMINOTRANSFERASE 61 Units/L (12-78); ALBUMIN 3.3 g/dL (3.4-5.0); ALKALINE PHOSPHATASE 107 Units/L (46-116); ASPARTATE AMINO TRANSFERASE 23 Units/L (15-37); BLOOD UREA NITROGEN 21 mg/dL (7-18); CALCIUM 9.2 mg/dL (8.5-10.1); CARBON DIOXIDE 23.1 mmol/L (21-32); CHLORIDE 102 mmol/L (98-107); COR CA(FOR HYPOALB) 9.8 mg/dL (8.5-10.1); CREATININE 1.25 mg/dL (0.55-1.02); SODIUM 137 mmol/L (136-145); eGFR NON BLACK RACES 49 (>60)
[2021-01-03] MEDS: DUONEB 0.5 MG/3 MG (3 mL) NEB SCH (08:54)
[2021-01-03] MEDS ORDERED: LASIX IVP SCH (09:00)
[2021-01-03] MEDS: COLACE SYRUP 100 MG UDC PO SCH (09:13)
[2021-01-03] MEDS: PEPCID TAB 20 MG PO SCH (09:14)
[2021-01-03] MEDS: NORVASC TAB 5 MG PO SCH (09:14)
[2021-01-03] MEDS: PROzac PO SCH (09:14)
[2021-01-03] MEDS: ROBITUSSIN DM PO SCH (09:14)
[2021-01-03] MEDS: XANAX PO SCH (09:14)
[2021-01-03] MEDS: LOTENSIN TAB 10 MG PO SCH (09:15)
[2021-01-03] MEDS: LOVENOX INJ 40 MG SYR SC SCH (09:15)
[2021-01-03] MEDS: COREG TAB 6.25 MG PO SCH (09:15)
[2021-01-03] MEDS: LASIX IVP SCH (09:15)
[2021-01-03] MEDS: MORPHINE SULFATE INJ 2 MG INJ IVP PRN (09:16)
[2021-01-03 12:28] VITALS: BP 112/66
== END 2021-01-03 12:30 | disposition short-term general hospital (02) | DRG 178 ==
LOC: ER 09:50 → MED/SURG 09:50
PROVIDERS: ADMIT Internal Medicine; ATTEND Internal Medicine
DX: Z74.01 Bed confinement status; I69.398 Other sequelae of cerebral infarction; N17.8 Other acute kidney failure; R40.4 Transient alteration of awareness; I50.9 Heart failure, unspecified; I11.0 Hypertensive heart disease with heart failure; I95.89 Other hypotension; Z20.822 Contact with and (suspected) exposure to COVID-19; N30.01 Acute cystitis with hematuria; R26.89 Other abnormalities of gait and mobility; R94.31 Abnormal electrocardiogram [ECG] [EKG]; Z93.1 Gastrostomy status; F91.8 Other conduct disorders; E86.0 Dehydration; I69.351 Hemiplegia and hemiparesis following cerebral infarction affecting right dominant side; J69.0 Pneumonitis due to inhalation of food and vomit; B95.2 Enterococcus as the cause of diseases classified elsewhere; J44.9 Chronic obstructive pulmonary disease, unspecified; I69.320 Aphasia following cerebral infarction